=== PATIENT | female | born 1990 | race Hispanic/Latino ===

== ENCOUNTER 2017-07-29 11:44 | Emergency (ER) | payer OTHER ==
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
[2017-07-29 11:55] VITALS: BP 138/91
[2017-07-29] MEDS ORDERED: TYLENOL PO ONE (11:57)
[2017-07-29] MEDS ORDERED: TYLENOL ONE (12:01)
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
--- NOTE | 2017-07-29 13:10 | Cat Scan Report ---
CT SCAN OF THE CERVICAL SPINE: HISTORY: Neck pain. TECHNIQUE: Contiguous 1.25 mm axial images of the cervical spine were obtained. Sagittal and coronal reformatted images. FINDINGS: There is normal alignment of the cervical spine. The body, pedicles and posterior ligaments appear normal. No evidence of fracture or subluxation is seen. The spinal canal appears normal. The prevertebral soft tissues appear normal. IMPRESSION: Unremarkable CT of the cervical spine. No acute process is noted.
--- NOTE | 2017-07-29 14:22 | XRay Report ---
RIGHT KNEE, 3 views: History: Pain. The bony architecture is intact without evidence of fracture or dislocation. No significant soft tissue abnormality is seen. IMPRESSION: Normal right knee.
[2017-07-29] MEDS ORDERED: MOTRIN PO ONE (15:09)
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
== END 2017-07-29 15:24 | disposition home or self-care (01) ==
LOC: ED 11:44
DX: S76.911A Strain of unspecified muscles, fascia and tendons at thigh level, right thigh, initial encounter (principal); R51 Headache; H66.91 Otitis media, unspecified, right ear; S13.4XXA Sprain of ligaments of cervical spine, initial encounter; V89.2XXA Person injured in unspecified motor-vehicle accident, traffic, initial encounter; Y93.89 Activity, other specified; Y92.89 Other specified places as the place of occurrence of the external cause; Y99.8 Other external cause status
CPT/HCPCS: 36415; 70450; 72125; 84703; 99284